=== PATIENT | female | born 1990 | race Caucasian/White ===

== ENCOUNTER 2018-09-19 13:47 | Inpatient (IN) | payer SELFPAY ==
[2018-09-19] MEDS ORDERED: SUBLIMAZE IV PRN (14:59)
[2018-09-19] MEDS ORDERED: PITOCin/NS 30 UNIT/500ML 30 UNITS/500 ML BAG IV SCH ×2 (15:00→17:00)
[2018-09-19] MEDS ORDERED: BRETHINE SUB-Q PRN (15:00)
--- NOTE | 2018-09-19 15:12 | History and Physical Report ---
History of Present Illness Date of examination: 09/19/18 Date of admission: 09/19/2018 Chief complaint: Leaking of water History of present illness: 27 year old presents to L&D complaining of leaking of clear fluid from vagina since 02:00 AM today. Patient states fluid is clear. Patient denies vaginal bleeding. Patient reports active movement. Patient reports irregular contractions. Patient received care at [facility] and records are available. LMP 01/05/18. EDC 10/12/18. has been uncomplicated except for anemia (patient took iron supplements). labs are as follows: A+, antibody screen negative, ru charlene immune, RPR nonreactive, hepatitis B surface antigen negative, HIV negative, GC negative, CT negative, quad screen negative, diabetes screen 87, GBS negative, LSIL pap. 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 denies: chlamydia, gonorrhea, hepatitis B, hepatitis C, herpes, HIV, syphilis, trichomonas Family/Genetic History: hypertension Social history: lives with family, full code. denies: smoking, alcohol abuse, prescription drug abuse, IV drug use - Obstetrical History Expected Date of Delivery: 10/12/18 Actual Gestation: 36 Week(s) 5 Day(s) : 1 Para: 0 Hx # Term Pregnancies: 0 Number of Pregnancies: 1 Spontaneous Abortions: 0 Induced : 0 Number of Living Children: 0 Medications and Allergies Allergies Allergy/AdvReac Type Severity Reaction Status Date / Time No Known Allergies Allergy Unverified 09/19/18 14:32 Active Meds: Active Medications Betamethasone Acet/Betameth SodPhos (Celestone Soluspan) 12 mg IM ONCE ONE Stop: 09/19/18 15:06 Ephedrine Sulfate (Ephedrine Sulfate) 10 mg IV Q2M PRN PRN Reason: Hypotension Fentanyl (Sublimaze) 100 mcg IV Q2H PRN PRN Reason: Labor Pain Lactated Ringer's (Lactated Ringers) 1,000 mls @ 125 mls/hr IV DIRECT RODOLFO Oxytocin/Sodium Chloride (Pitocin/Ns 20 Unit/1000ml Drip) 20 units in 1,000 mls @ 125 mls/hr IV DIRECT RODOLFO Oxytocin/Sodium Chloride (Pitocin/Ns 30 Unit/500ml) 30 units in 500 mls @ 0 mls/hr IV TITR RODOLFO; Protocol Lidocaine (Xylocaine 2%) 20 ml INFILTRATI ONCE ONE Stop: 09/19/18 15:00 Terbutaline Sulfate (Brethine) 0.25 mg SUB-Q ONCE PRN PRN Reason: Hyperstimulation/Hypertonicity Review of Systems All systems: negative (leaking of fluid from vagina) - Vital Signs Vital signs: Vital Signs Pulse BP 97 H 116/60 09/19/18 14:22 09/19/18 14:22 Temp Pulse Resp BP Pulse Ox 96 H 120/69 09/19/18 14:24 09/19/18 14:24 - Physical Exam Abdomen: Positive: normal appearance, soft. Negative: distention, tenderness, guarding, rigidity Genitourinary (Female): Positive: normal external genitalia, normal perenium. Negative: perineal/vulvar lesions Vagina: Positive: other (pooling noted in vagina on speculum exam; positive nitrazine, positive fern) Uterus: Positive: enlarged (gravid) Anus/Rectum: Positive: normal perianal skin Extremities: Positive: normal - Obstetrical FHR: category 1 Uterine Contraction Monitor Mode: External Cervical Dilatation: 0.5 Cervical Effacement Percentage: 75 station: -2 Uterine Contraction Pattern: Irregular Uterine Contraction Intensity: Mild Results All other labs normal. Assessment and Plan A: at 36 5/7 weeks. Spontaneous rupture of membranes. P: Admit. Continuous EFM. IM Celestone. Pitocin augmentation of labor. Discussed with patient risks and benefits of Pitocin augmentation of labor. Patient consented to Pitocin augmentation of labor.
[2018-09-19 15:44] LABS: Hematocrit 34.8 % (30.3-42.9); Hemoglobin 12.3 gm/dl (10.1-14.3); Mean Corpuscular HGB Conc 35 % (30-34); Mean Corpuscular Volume 89 fl (79-97); Platelet Count 307 K/mm3 (140-440); Red Blood Count 3.94 M/mm3 (3.65-5.03); Red Cell Distribution Width 14.5 % (13.2-15.2)
[2018-09-19] MEDS ORDERED: CELESTONE SOLUSPAN IM ONE (16:00)
[2018-09-19] MEDS ORDERED: XYLOCAINE 2% INFILTRATI ONE (16:00)
[2018-09-19] MEDS ORDERED: PITOCin/NS 20 UNIT/1000ML DRIP 20 UNITS/1,000 ML BAG IV SCH (16:00)
[2018-09-19] MEDS ORDERED: AMPICILLIN/NS 2 GM/100 ML 2 GM/100 ML BAG IV ONE (20:19)
[2018-09-19] MEDS ORDERED: TYLENOL PO ONE (23:06)
[2018-09-20] MEDS: LACTATED RINGERS 1,000 ML IV SCH ×5 (00:54→17:47)
[2018-09-20] MEDS: AMPICILLIN/NS 1 GM/50 ML 1 GM/50 ML BAG IV SCH ×4 (00:54→13:10)
--- NOTE | 2018-09-20 08:22 | Progress Note ---
Assessment and Plan A: at 36 weeks, 6 days gestation. SROM. GBS negative. P: Continue Pitocin augmentation of labor. Subjective - Subjective Date of service: 09/20/18 Principal diagnosis: at 36 weeks, 6 days gestation. Interval history: at 36 weeks, 6 days gestation. Receiving Pitocin for augmentation of labor due to SROM. On Ampicillin. Patient reports: loss of fluid, movement normal, contractions, no new complaints, no vaginal bleeding Objective - Vital Signs Vital Signs: Vital Signs - 12hr 09/19/18 09/19/18 09/20/18 23:15 23:57 03:40 Temperature 97.8 F 97.8 F Pulse Rate 79 85 Respiratory Rate Blood Pressure 102/56 108/63 09/20/18 09/20/18 08:01 08:02 Temperature 98.1 F Pulse Rate 61 Respiratory 16 Rate Blood Pressure 107/63 - Exam Abdomen: Present: normal appearance, soft. Absent: distention, tenderness, guarding, rigidity Uterus: Present: normal, fundal height above umbilicus FHR: category 1 Uterine Contraction Monitor Mode: External Cervical Dilatation: 1.5 Cervical Effacement Percentage: 90 station: -2 Uterine Contraction Pattern: Irregular Uterine Contraction Intensity: Mild Extremities: normal - Labs Labs: Abnormal Labs 09/19/18 14:54 MCHC 35 H Laboratory Results - last 24 hr 09/19/18 09/19/18 14:54 14:54 WBC 10.0 RBC 3.94 Hgb 12.3 Hct 34.8 MCV 89 MCH 31 MCHC 35 H RDW 14.5 Plt Count 307 Blood Type A POSITIVE Antibody Screen Negative
[2018-09-20] MEDS ORDERED: NARCAN 2 MG/2 ML IV PRN (09:56)
--- NOTE | 2018-09-20 09:56 | Anesthesia Consultation ---
Anesthesia Consult and Med Hx Date of service: 09/20/18 - Airway Anesthetic Teeth Evaluation: Good ROM Head & Neck: Adequate Mental/Hyoid Distance: Adequate Mallampati Class: Class II Intubation Access Assessment: Probably Good - Pulmonary Exam CTA: Yes - Cardiac Exam Cardiac Exam: RRR - Pre-Operative Health Status ASA Pre-Surgery Classification: ASA2 Proposed Anesthetic Plan: Epidural, Spinal - Pulmonary Hx Asthma: No COPD: No Hx Pneumonia: No - Cardiovascular System Hx Hypertension: No - Central Nervous System Hx Seizures: No Hx Psychiatric Problems: No - Endocrine Hx Renal Disease: No Hx Hypothyroidism: No Hx Hyperthyroidism: No - Hematic Hx Sickle Cell Disease: No - Other Systems Hx Alcohol Use: No
[2018-09-20] MEDS ORDERED: fentaNYL-BUPIV 2 MCG/ML-0.125% 200 MCG/100 ML BAG EPIDURAL SCH ×2 (10:00→18:00)
[2018-09-20] MEDS ORDERED: MARCAINE 0.25% INFILTRATI ONE (10:05)
--- NOTE | 2018-09-20 11:27 | Event Note ---
Date: 09/20/18 IUPC placed without difficulty to better trace contractions. SVE /-1. Pitocin at 20 milliunits per minute. Uterus palpates soft between contractions. VSS. Patient remains afebrile and amniotic fluid remains clear.
--- NOTE | 2018-09-20 13:41 | Event Note ---
Date: 09/20/[address] MVUs adequate. Prolonged ROM, patient receiving IV Ampicillin. No fever. SVE 3/90/-1; clear amniotic fluid. Occasional late FHR deceleration with moderate FHR variability and normal baseline FHR. Patient in lateral position with oxygen per face mask and IV fluid bolus. Patient has received ephedrine for hypotension related to epidural. Consulted with Dr. Le re: patient, prolonged ROM, FHR tracing. Dr. Le states to re-evluate cervix in a couple of hours and if no cervical change will go for C/S at that time.
[2018-09-20] MEDS ORDERED: CELESTONE SOLUSPAN IM ONE (15:59)
[2018-09-20] MEDS ORDERED: PEPCID IV ONE (16:38)
[2018-09-20] MEDS ORDERED: BICITRA PO ONE (16:38)
[2018-09-20] MEDS ORDERED: REGLAN IV ONE (16:38)
--- NOTE | 2018-09-20 16:38 | Event Note ---
Date: 09/20/18 SVE cervix unchanged. Category 1 heart rate tracing. MVUs adequate. Consulted with Dr. Le re: this patient and lack of cervical change. Dr. Le states to get patient ready for section for failure to progress.
[2018-09-20] MEDS ORDERED: LACTATED RINGERS 1,000 ML IV SCH (17:00)
[2018-09-20] MEDS ORDERED: ANCEF/STERILE WATER 2 GM/20 ML 2 GM/20 ML SYRINGE IV NR (17:00)
[2018-09-20] MEDS ORDERED: PITOCin/NS 20 UNIT/1000ML DRIP 20 UNITS/1,000 ML BAG IV SCH ×2 (17:00→19:00)
[2018-09-20] MEDS ORDERED: ZOFRAN IV PRN (17:25)
[2018-09-20] MEDS ORDERED: XYLOCAINE 2%/ EPI 1:200,000 INFILTRATI ONE (17:25)
[2018-09-20] MEDS ORDERED: PHENERGAN PR PRN (17:25)
[2018-09-20] MEDS ORDERED: PHENERGAN PO PRN (17:25)
[2018-09-20] MEDS ORDERED: NARCAN 0.4 MG/1 ML IV PRN ×2 (17:25→18:54)
--- NOTE | 2018-09-20 17:25 | Anesthesia Day of Surgery ---
Anesthesia Day of Surgery - Day of Surgery Patient Examined: Yes Patient H&P Reviewed: Yes Patient is NPO: Yes
[2018-09-20] MEDS ORDERED: ZOFRAN ONE (17:56)
[2018-09-20] MEDS ORDERED: SODIUM CHLORIDE FLUSH SYRINGE 10 ML IV NR ×2 (18:00→19:00)
[2018-09-20] MEDS ORDERED: WATER FOR IRRIG STERILE IR ONE (18:01)
[2018-09-20] MEDS ORDERED: NACL 0.9% IR ONE (18:01)
[2018-09-20] MEDS ORDERED: SUBLIMAZE ONE (18:07)
--- NOTE | 2018-09-20 18:44 | Operative Report ---
Operative Report Operative Report: Date of procedure: 09/20/2018 Pre-operative diagnosis: 1. Intrauterine at 40-2/7 weeks 2. Prolon ged rupture of membranes 3. Failure to progress Post-operative diagnosis: Same Procedure name(s): Primary low transverse section Surgeon: Manuel Le MD Motor Vehicle Assembly Supervisor: None Anesthesia: Epidural anesthesia by Last Marquez CRNA EBL: 700 mls Findings: A 2320 g female infant Apgars 9 at 1 minute and 9 at 5 minutes. Clear amniotic fluid. Normal uterus. Normal tubes and ovaries bilaterally. Procedure: After the patient was prepped and draped in usual sterile fashion, and after satisfactory level of epidural anesthesia was obtained, the skin knife was used to make a transverse skin incision. The incision was excised down to layer of the fascia, which was nicked in the midline and extended laterally using the Bovie cautery. The rectus muscles were dissected off the rectus fa scia both superiorly and inferiorly. The rectus bellies in the midline, and the peritoneum was entered under direct visualization. The peritoneal incision was extended superiorly and inferiorly. A bladder flap was created and the bladder blade was then placed. The uterus was scored in a curvilinear linear fashion, entered in the midline revealing clear amniotic fluid. The 's head was delivered onto the surgical field with the aid of a vacuum, and the oropharynx and nasopharynx were bulb suctioned. The rest of the infant's body was delivered, cord was doubly clamped and cut and the was handed to the waiting respiratory team. The placenta was manually removed from the uterus, and the uterus removed from its normal anatomical position. After gentle uterine lavage, the incision was inspected and found to be without extensions. It was then closed in 2 layers using 0 Vicryl suture in a running interlocking fashion, the second layer imbricating the first. After good hemostasis was achieved, copious amounts or irrigation was performed, and the gutters were suctioned free of blood and blood clots. Tisseel sealant was sprayed across the uterine incision. The uterus was then returned to its normal anatomical position, and after excellent hemostasis assured, the peritoneum was re-approximated using 3-0 Vicryl suture in a running interlocking fashion, and then the rectus muscles were re-approximated using 3-0 Vicryl suture in a [id number] configuration. The fascia was then re-approximated using 0 Vicryl suture in running interlocking fashion. The subcutaneous layer was made hemostatic using Bovie cautery, the Tisseel sealant was sprayed across the fascial incision and the skin edges re-approximated using 4-0 Vicryl suture in a sub-cuticular fashion. Patient tolerated the procedure well was transported to recovery in stable condition.
[2018-09-20] MEDS ORDERED: MYLICON PO PRN (18:54)
[2018-09-20] MEDS ORDERED: TUCKS PAD TP PRN (18:54)
[2018-09-20] MEDS ORDERED: SENOKOT PO PRN (18:54)
[2018-09-20] MEDS ORDERED: LANSINOH TP PRN (18:54)
[2018-09-20] MEDS ORDERED: TYLENOL PO PRN (18:54)
[2018-09-20] MEDS ORDERED: PERCOCET 5/325 PO PRN (18:54)
[2018-09-20] MEDS ORDERED: MILK OF MAGNESIA PO PRN (18:54)
[2018-09-20] MEDS ORDERED: ANCEF/NS 1 GM/50 ML 1 GM/50 ML BAG IV SCH (19:00)
[2018-09-20] MEDS: D5LR 1,000 ML IV SCH (22:25)
[2018-09-20] MEDS: TORADOL IV PRN (22:25)
[2018-09-21] MEDS: TORADOL IV PRN (05:26)
[2018-09-21] MEDS: D5LR 1,000 ML IV SCH (05:27)
[2018-09-21 06:25] LABS: Hematocrit 29.4 % (30.3-42.9); Hemoglobin 9.8 gm/dl (10.1-14.3)
--- NOTE | 2018-09-21 09:43 | Post Anesthesia Evaluation ---
- Post Anesthesia Evaluation Patient Participated: Yes Airway Patent: Yes Stable Respiratory Function: Yes Nausea/Vomiting: No Temp > 96.8F: No Pain Manageable: Yes Adequeate Hydration: Yes Anesthesia Complications: No Block Receding Appropriately: Yes Patient on Ventilator: No
[2018-09-21] MEDS ORDERED: ANCEF/NS 1 GM/50 ML 1 GM/50 ML BAG IV ONE (11:00)
--- NOTE | 2018-09-21 11:30 | Progress Note ---
Assessment and Plan - Patient Problems (1) S/P primary low transverse Current Visit: Yes Status: Acute Plan to address problem: POD 1 - stable Continue routine postop orders Ambulation encouraged, as tolerated Anticipate discharge in 24-48 hours (2) Anemia due to blood loss, acute Current Visit: Yes Status: Acute Plan to address problem: Asymptomatic Continue iron therapy Subjective - Subjective Date of service: 09/21/18 Principal diagnosis: POD #1; s/p Primary LTCS Interval history: see H&P, Event Notes and Operative Report Patient reports: appetite normal, voiding normally, pain well controlled, flatus, ambulating normally, no bowel movement [place]: doing well, bottle feeding Objective - Vital Signs Latest vital signs: Vital Signs Temp Pulse Resp BP BP Pulse Ox 09/21/18 08:22 97.6 F 66 18 106/63 92 09/21/18 05:13 98.3 F 64 18 115/61 93 09/21/18 00:37 98.8 F 67 20 97/57 92 09/20/18 20:38 77 127/86 09/20/18 20:31 97.3 F L 80 24 106/63 97 09/20/18 19:47 98.1 F 81 21 112/55 95 09/20/18 19:32 73 21 112/55 95 09/20/18 19:17 79 20 108/51 95 09/20/18 19:02 76 21 104/48 95 09/20/18 18:03 97.9 F 09/20/18 17:31 120 H 110/55 09/20/18 17:14 115 H 107/52 09/20/18 17:01 92 H 112/55 09/20/18 16:45 90 90/50 09/20/18 16:29 83 99/53 09/20/18 16:14 86 92/53 09/20/18 15:59 85 93/47 09/20/18 15:57 98.3 F 09/20/18 15:45 80 91/47 09/20/18 15:29 87 97/46 09/20/18 15:15 95 H 101/53 09/20/18 14:59 100 H 86/60 09/20/18 14:45 117 H 80/50 09/20/18 14:33 94 H 92/47 09/20/18 14:29 89 88/44 03/31/19 14:13 92 H 100/49 09/20/18 14:10 80 102/51 09/20/18 14:07 82 100/49 09/20/18 14:04 88 97/48 09/20/18 14:01 83 106/52 09/20/18 13:58 80 104/48 09/20/18 13:55 84 102/50 09/20/18 13:52 85 95/47 09/20/18 13:49 86 108/53 09/20/18 13:46 80 103/51 09/20/18 13:43 93 H 100/49 09/20/18 13:40 75 98/48 09/20/18 13:37 88 99/49 09/20/18 13:28 81 93/44 09/20/18 13:25 66 86/42 09/20/18 13:09 77 93/44 09/20/18 13:00 98.5 F 09/20/18 12:54 80 95/45 09/20/18 12:39 75 94/46 09/20/18 12:26 77 102/54 09/20/18 12:09 85 94/55 09/20/18 11:56 77 99/54 09/20/18 11:40 75 102/56 Intake and Output 09/20/18 09/21/18 09/21/18 23:59 07:59 15:59 Intake Total 2548.333 999.167 Output Total 1600 2600 Balance 948.333 -1600.833 Intake: IV 2308.333 879.167 D5lr 1,000 ml @ 125 mls/ 879.167 hr IV DIRECT RODOLFO Rx#: [id number] Lactated Ringers 1,000 ml 508.333 @ 125 mls/hr IV DIRECT RODOLFO Rx#:[id number] Oral 120 Intake, Free Water 240 Output: Urine 1600 2600 Indwelling Catheter 1200 2600 Uretheral ([place]) 100 Other: Total, Intake Amount 120 Total, Output Amount 1200 1100 Voiding Method Indwelling Catheter Estimated Blood Loss 700 - Exam Cardiovascular: Present: Regular rate Lungs: Present: Clear to auscultation Abdomen: Present: normal appearance, soft Vulva: both: normal Uterus: Present: normal, firm, fundal height at umbilicus Extremities: Present: normal Incision: Present: normal, dry, intact, dressed Comments: small lochia - Labs Labs: Abnormal lab results 09/21/18 Range/Units 05:52 Hgb 9.8 L (10.1-14.3) gm/dl Hct 29.4 L (30.3-42.9) %
[2018-09-21] MEDS: FEOSOL PO SCH (11:36)
[2018-09-21] MEDS: PRENATAL VITAMIN PO SCH (11:36)
[2018-09-21] MEDS: NORCO 5/325 PO PRN ×2 (11:36→16:52)
[2018-09-21] MEDS ORDERED: M-M-R II VACCINE SUB-Q ONE (18:57)
[2018-09-21] MEDS ORDERED: BOOSTRIX IM ONE (18:57)
[2018-09-22] MEDS: IBUPROFEN PO PRN ×2 (00:20→16:01)
--- NOTE | 2018-09-22 10:06 | Progress Note ---
Assessment and Plan A: 27 yo, @ POD 2 A+ blood type Anemia- stable C/S incision dry and intact P: D/C home today Continue po iron supplementation BID F/U in office in 1 week for incision check F/U in office in 6 wk for routine PPV Subjective - Subjective Date of service: 09/22/18 (1001) Principal diagnosis: POD #2; s/p Primary LTCS Interval history: See Admission H & P; Operative report; and PP notes Patient reports: appetite normal, voiding normally, pain well controlled, flatus, ambulating normally, no bowel movement : doing well, other (and ), bottle feeding Objective - Vital Signs Latest vital signs: Vital Signs Temp Pulse Resp BP BP Pulse Ox 09/22/18 08:22 97.8 F 74 18 123/72 09/22/18 05:57 18 09/22/18 00:20 18 09/21/18 23:15 98.4 F 64 18 110/71 96 09/21/18 16:52 16 09/21/18 16:09 97.3 F L 78 18 101/69 96 09/21/18 12:07 98.6 F 18 120/63 09/21/18 12:06 98.6 F 70 18 120/63 95 09/21/18 11:36 16 Intake and Output 09/21/18 09/22/18 09/22/18 23:59 07:59 15:59 Intake Total 200 120 360 Output Total 250 Balance -50 120 360 Intake: Oral 200 360 Intake, Free Water 120 Output: Urine 250 Void 250 Other: Total, Intake Amount 200 360 Total, Output Amount 250 # Voids Void 1 1 - Exam Breasts: Present: normal Cardiovascular: Present: Regular rate, Normal S1, Normal S2 Lungs: Present: Clear to auscultation, Normal air movement Abdomen: Present: normal appearance, soft, normal bowel sounds Uterus: Present: firm, fundal height below umbilicus (U-1) Extremities: Present: normal Deep Tendon Reflex Grade: Normal +2 Incision: Present: dry, intact (steri-strips intact, no signs of infection)
--- NOTE | 2018-09-22 10:11 | Discharge Summary ---
Providers - Providers Date of Admission: 09/19/18 15:48 Date of discharge: 09/22/18 (1300) Attending physician: TEREZA RIOJAS MD Primary care physician: TEREZA RIOJAS MD Hospitalization Reason for admission: rupture of membranes, IUP at term Delivery: Procedure: section, primary low transverse Episiotomy: none Laceration: none Incision: dry, intact, other (Steri-strips intact, no signs of infection noted) Other procedures: none complications: other (anemia) Discharge diagnosis: other (S/P Primary C/S; Anemia) Condition at discharge: Stable Disposition: DC-01 TO HOME OR SELFCARE Plan - Discharge Medications Prescriptions: Ferrous Sulfate [Feosol 325 MG tab] 325 mg PO BID #60 tablet Ibuprofen [Motrin] 800 mg PO Q8HR PRN #30 tablet PRN Reason: Pain, Mild (1-3) HYDROcodone/APAP 5-325 [Julian 5/325] 1 each PO Q6HR PRN #30 tablet PRN Reason: Pain Pnv No.95/Ferrous Fum/Folic AC [Prenavite Tablet] 1 each PO DAILY #30 tablet - Provider Discharge Summary Activity: routine, no sex for 6 weeks, no heavy lifting 4 weeks, no strenuous exercise Diet: routine Instructions: routine Additional instructions: [] Smoking cessation referral if applicable(refer to patient education folder for contact #) [] Refer to [facility] Booklet Call your doctor immediately for: * Fever > 100.5 * Heavy vaginal bleeding ( >1 pad per hour) * Severe persistent headache * Shortness of breath * Reddened, hot, painful area to leg or breast * Drainage or odor from incision. * Keep incision clean and dry at all times and follow doctor's instructions regarding bathing/showering - Follow up plan Follow up: TEREZA RIOJAS MD [Primary Care Provider] - 7 Days
[2018-09-22] MEDS: PRENATAL VITAMIN PO SCH (11:19)
[2018-09-22] MEDS: FEOSOL PO SCH (11:19)
[2018-09-22] MEDS: NORCO 5/325 PO PRN (16:03)
[2018-09-22 17:02] VITALS: BP 128/81
== END 2018-09-22 20:45 | disposition home or self-care (01) | DRG 787 ==
LOC: TRG 13:47 → LD 15:48 → OB 09-20 20:10
PROVIDERS: ADMIT Obstetrics & Gynecology; ATTEND Obstetrics & Gynecology
PROC: 10D00Z1 Extraction of Products of Conception, Low, Open Approach (ICD-10-PCS; principal; 2018-09-20)
PROC: 10H07YZ Insertion of Other Device into Products of Conception, Via Natural or Artificial Opening (ICD-10-PCS; 2018-09-20)
PROC: 3E0234Z Introduction of Serum, Toxoid and Vaccine into Muscle, Percutaneous Approach (ICD-10-PCS; 2018-09-21)
DX: O63.1 Prolonged second stage (of labor) (principal); D62 Acute posthemorrhagic anemia; Z37.0 Single live birth; Z82.49 Family history of ischemic heart disease and other diseases of the circulatory system; Z3A.36 36 weeks gestation of pregnancy; O76 Abnormality in fetal heart rate and rhythm complicating labor and delivery; O90.81 Anemia of the puerperium; O62.0 Primary inadequate contractions; Z23 Encounter for immunization
CPT/HCPCS: 36415; 85014; 85018; 85027; 86592; 86850; 86900; 86901; G0378; C9250; J0290; J0690; J0702; J1885; J2405; J2590; J2765; J3010; J7120; J7121

== ENCOUNTER 2021-05-22 15:27 | Emergency (ER) | payer SELFPAY ==
[2021-05-22 15:35] VITALS: BP 139/84
[2021-05-22] MEDS ORDERED: ACETAMINOPHEN 500 MG TAB PO ONE (16:35)
--- NOTE | 2021-05-22 16:35 | Emergency Department Report ---
ED HPI - General Chief complaint: Vaginal Bleeding Stated complaint: PAIN WITH 12 WKS Time Seen by Provider: 05/22/21 16:27 Source: patient Mode of arrival: Ambulatory Limitations: No Limitations - History of Present Illness Initial comments: Patient presents with 1 day history of vaginal bleeding and lower abdominal cramping. This is a cramping pain in the suprapubic area. She is 12 weeks gestation by dates. 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 Patient has no history of trauma. She denies fevers and chills. There is no bleeding from other sites. She is a G3, P2. She did have -induced hypertension with her second . She is never had bleeding of this nature before. She has had no prior miscarriages. She knows that she is Rh+. - Related Data Previous Rx's Medication Instructions Recorded Last Taken Type Ferrous Sulfate [Feosol 325 MG tab] 325 mg PO BID #60 tablet 09/20/18 Unknown Rx HYDROcodone/APAP 5-325 [[place] 1 each PO Q6HR PRN #30 tablet 09/20/18 Unknown Rx 5/325] Ibuprofen [Motrin] 800 mg PO Q8HR PRN #30 tablet 09/20/18 Unknown Rx Pnv No.95/Ferrous Fum/Folic AC 1 each PO DAILY #30 tablet 09/20/18 Unknown Rx [Prenavite Tablet] Allergies Allergy/AdvReac Type Severity Reaction Status Date / Time No Known Allergies Allergy Unverified 09/19/18 14:32 ED Review of Systems ROS: Stated complaint: PAIN WITH 12 WKS Other details as noted in HPI Comment: All other systems reviewed and negative Constitutional: denies: fever Eyes: denies: vision change ENT: denies: throat pain Respiratory: denies: cough Cardiovascular: denies: chest pain Endocrine: denies: unexplained weight loss Gastrointestinal: as per HPI Genitourinary: as per HPI Musculoskeletal: denies: back pain Skin: denies: rash Neurological: denies: headache Hematological/Lymphatic: denies: easy bruising ED Past Medical Hx - Past Medical History Hx Hypertension: No Hx Congestive Heart Failure: No Hx Diabetes: No Hx Renal Disease: No Hx Sickle Cell Disease: No Hx Seizures: No Hx Asthma: No Hx COPD: No Hx HIV: No - Family History Family history: no significant - Social History Smoking Status: Never Smoker - Medications Home Medications: Home Medications Medication Instructions Recorded Confirmed Last Taken Type Ferrous Sulfate [Feosol 325 MG tab] 325 mg PO BID #60 tablet 09/20/18 Unknown Rx HYDROcodone/APAP 5-325 [[place] 1 each PO Q6HR PRN #30 tablet 09/20/18 Unknown Rx 5/325] Ibuprofen [Motrin] 800 mg PO Q8HR PRN #30 tablet 09/20/18 Unknown Rx Pnv No.95/Ferrous Fum/Folic AC 1 each PO DAILY #30 tablet 09/20/18 Unknown Rx [Prenavite Tablet] ED Physical Exam - General Limitations: No Limitations (Patient request family for translation. We offered formal translation services which she refused.), Other General appearance: alert (Socks noted and normal), in no apparent distress - Head Head exam: Present: atraumatic, normocephalic, normal inspection - Eye Eye exam: Present: normal appearance, EOMI. Absent: scleral icterus - ENT ENT exam: Present: normal exam, normal orophraynx - Neck Neck exam: Present: normal inspection. Absent: meningismus - Respiratory Respiratory exam: Present: normal lung sounds bilaterally. Absent: respiratory distress - Cardiovascular Cardiovascular Exam: Present: regular rate, normal rhythm - GI/Abdominal GI/Abdominal exam: Present: soft, tenderness (Suprapubic). Absent: guarding, rebound - Extremities Exam Extremities exam: Present: normal capillary refill. Absent: calf tenderness - Back Exam Back exam: Absent: CVA tenderness (R), CVA tenderness (L) - Neurological Exam Neurological exam: Present: alert, oriented X3, CN II-XII intact, normal gait. Absent: motor sensory deficit - Psychiatric Psychiatric exam: Present: normal affect, normal mood - Skin Skin exam: Present: warm, dry ED Course Vital Signs 05/22/21 15:34 Temperature 99.1 F Pulse Rate 78 Respiratory 17 Rate Blood Pressure 139/84 O2 Sat by Pulse 99 Oximetry - Reevaluation(s) Reevaluation #1: 05/22/21 16:34 Ultrasound was ordered. Old records reviewed. Reevaluation #2: 05/22/21 18:52 Ultrasound was noted. Patient was discharged. ED Medical Decision Making - Radiology Data Radiology results: report reviewed - Medical Decision Making Patient presents with lower abdominal pain and reports of vaginal bleeding in the setting of leak first trimester. There is still concern for threatened . This is been discussed with her using translation services. Patient has no ultrasound abnormality noted. She does not have fevers that would suggest any kind of infectious pathology. There is no dysuria or frequency to suggest any kind of infection. She does not have a subchorionic hemorrhage noted. There is good heart movement. Patient has been referred to her value analyst for recheck. All questions have been answered. Critical Care Time: No Critical care attestation.: If time is entered above; I have spent that time in minutes in the direct care of this critically ill patient, excluding procedure time. ED Disposition Clinical Impression: Threatened , Abdominal pain affecting Disposition: HOME / SELF CARE / HOMELESS Is pt being admited?: No Condition: Stable Instructions: Threatened Miscarriage, Abdominal Pain, Adult, [id number] Additional Instructions: DRINK WATER. USE TYLENOL FOR PAIN. SEE YOUR REGULAR DOCTOR AND PHLEBOTOMY LAB ASSISTANT FOR RECHECK. SEE THE REFERRAL DOCTOR IF YOU DO NOT HAVE A REGULAR DOCTOR. Referrals: PRIMARY CAREMD [Primary Care Provider] - 3-5 Days KARAN MAY MD [Staff Physician] - 3-5 Days SHALOM ZARAGOZA MD [Staff Physician] - 3-5 Days Print Language: POLISH
--- NOTE | 2021-05-22 18:22 | Ultrasound Report ---
FIRSTTRIMESTER OBSTETRIC ULTRASOUND ULTRASOUND OB TRANSVAGINAL HISTORY: Vaginal bleeding COMPARISON: None. TECHNIQUE: Routine transabdominal and transvaginal OB ultrasound performed. FINDINGS: Uterus: Normal size measuring 7.9 x 4.2 x 4.7 cm. Gestational Sac: Not seen Yolk Sac: Not seen Fetus/Embryo: Not seen Endometrium: Unremarkable measuring 0.5 cm. Ovaries: The right ovary is measures 2.4 x 1.7 x 3.8 cm and contains a 1.9 x 1.6 cm cyst. The left ovary is normal in size and appearance with normal blood flow, measuring 1.6 x 2.3 x 2.0 cm. Additional findings: None. IMPRESSION No intrauterine is identified. The endometrium is unremarkable measuring 5 mm. Right ovarian cyst. Signer Name: Manuel Tafoya Jr, MD Signed: 05/22/2021 6:18 PM Workstation Name: [id number]
== END 2021-05-22 18:56 | disposition home or self-care (01) ==
LOC: ED 15:27
DX: O20.0 Threatened abortion (principal); Z3A.11 11 weeks gestation of pregnancy
CPT/HCPCS: 76801; 76817; 99283